=== PATIENT | male | born 1980 | race African-American/Black ===

== ENCOUNTER 2016-12-10 16:34 | Inpatient (IN) ==
[2016-12-10 18:16] LABS: MANUAL DIFF NEEDED? NO
[2016-12-10 18:19] LABS: BASO% 0.2 % (0.0-0.8); EOS# 0.05 X1000 (0.0-0.7); EOS% 0.4 % (0.0-10.0); HEMATOCRIT 37.2 % (42.0-52.0); HEMOGLOBIN 12.4 g/dL (14.0-18.0); IMM GRAN# 0.04 X1000 (0.0-0.04); IMM GRAN% 0.3 % (0.0-0.5); LYMPH# 1.57 X1000 (1.2-3.4); MCH 29.2 PG (27-31); MCHC 33.3 g/dL (33-37); MCV 87.5 FL (81-99); MONO# 1.07 X1000 (0.11-0.59); MONO% 8.2 % (1.7-9.3); MPV 10.2 FL (7.4-10.4); NEUT% 78.9 % (42.2-75.2); PLT 300 X1000 (130-400); RBC 4.25 XMIL (4.7-6.1)
[2016-12-10 18:38] LABS: AGAP 13; BUN 11 mg/dL (8-22); CALCIUM 9.3 mg/dL (8.8-10.2); CHLORIDE 96 mmol/L (98-107); COSMO 272; POTASSIUM 4.2 mmol/L (3.5-5.1); SODIUM 135 mmol/L (136-145); TCO2 26 mmol/L (25-35)
[2016-12-10] MEDS: NORCO-5 PO PRN (18:56)
[2016-12-10] MEDS: KEFZOL 1 GM/D5W 1 GM/50 ML IVPB IV SCH (18:57)
[2016-12-10] MEDS: NS 1,000 ML IV SCH (18:57)
--- NOTE | 2016-12-10 21:07 | HISTORY AND PHYSICAL ---
DATE OF CONSULTATION: 12/10/2016 [facility] CONSULTATION CHIEF COMPLAINT: Left foot pain. HISTORY OF PRESENT ILLNESS: Mr. Teddy Baker Jr. is a 36-year-old male who presents to clinic today for evaluation of his left foot. He stepped on a nail about 6 days ago at work and it went through his athletic shoe up into the plantar aspect of his foot near the 2nd toe. What happened was that he pulled the nail out but did not seek medical treatment at that time and did not inform his boss what it happened, and this did happen at work. He continued to work until yesterday until he sought medical treatment here over the past day or so. He says that he has a lot of pain in the forefoot area and it is beginning to blister dorsally, that was not there previously. The entry site where the nail went in is not looking good and it is draining. His foot, ankle and leg are swelling at this point. PAST MEDICAL HISTORY: Diabetes and history of seizures although he has not had a seizure in a while. PAST SURGICAL HISTORY: None. MEDICATIONS: Metformin and Dilantin. ALLERGIES: No known drug allergies. SOCIAL HISTORY: Denies any smoking or alcohol use. FAMILY HISTORY: Noncontributory. REVIEW OF SYSTEMS: Positive for left foot pain. All other systems are essentially negative. PHYSICAL EXAMINATION: General: Well-developed, well-nourished male, in no acute distress. Head and neck: Normocephalic, atraumatic. Lungs: Respirations nonlabored. Cardiovascular: Regular rate. Abdomen: Nondistended. Left Lower Extremity: Examination of the plantar aspect of the foot really almost just medial to the 2nd MTP joint there is an open tract where he has some necrotic tissue and the necrotic tissue does look to be deep there. There is no active purulent drainage from the wound today. His entire foot is swollen along with his ankle and his lower leg. He has some pitting edema in the lower leg as well. Looking dorsally, the dorsal aspect of that 2nd MTP joint is getting some blistering there and some erythema to the whole dorsum of the foot. He can move the toes still. He does have sensation still, maybe just a little bit of numbness in the 2nd toe, 2+ DP pulse. ASSESSMENT: Left foreign body injury with foot infection and left lower extremity cellulitis. PLAN: I am going to admit Mr. Petty Bardales to the hospital today. He is going to start IV Ancef. We took a wound culture in clinic today and sent it off. I discussed with him also about irrigation and debridement in the operating room tomorrow morning as I would like to clean up that whole area and do a very thorough debridement, and then get him on some good antibiotics so we can minimize the injury to the foot. I discussed with him this is a pretty serious illness that he has. I went over with him the surgery, the risks, benefits, and potential complications. The risks include, but are not limited to, infection, wound healing problems, damage to nerves, arteries, veins, numbness, continued pain, DVT and anesthesia related risks. After discussing this, patient expressed understanding and wished to proceed. He will be admitted. I will consult the hospitalist especially as he has diabetes. I will also consult Infectious Disease as well. cc: Jaydon Urias MD
[2016-12-11] MEDS: KEFZOL 1 GM/D5W 1 GM/50 ML IVPB IV SCH ×2 (01:16→09:07)
[2016-12-11] MEDS: NORCO-5 PO PRN (01:16)
[2016-12-11] MEDS ORDERED: ZOFRAN IV PRN ×2 (01:29→12:20)
[2016-12-11] MEDS ORDERED: TYLENOL PO PRN (01:29)
[2016-12-11] MEDS ORDERED: NS 1,000 ML IV SCH (01:29)
[2016-12-11] MEDS: PROTONIX IV SCH (02:02)
[2016-12-11] MEDS: DILANTIN PO SCH ×2 (02:02→20:58)
[2016-12-11] MEDS: SODIUM CHLORIDE 0.9% INJ SCH (02:03)
[2016-12-11 05:46] LABS: MANUAL DIFF NEEDED? NO
[2016-12-11 05:50] LABS: BASO% 0.3 % (0.0-0.8); EOS# 0.03 X1000 (0.0-0.7); EOS% 0.4 % (0.0-10.0); HEMATOCRIT 35.1 % (42.0-52.0); HEMOGLOBIN 11.8 g/dL (14.0-18.0); IMM GRAN# 0.02 X1000 (0.0-0.04); IMM GRAN% 0.3 % (0.0-0.5); LYMPH% 18.3 % (20.5-51.1); MCH 29.4 PG (27-31); MCHC 33.6 g/dL (33-37); MCV 87.5 FL (81-99); MONO# 0.82 X1000 (0.11-0.59); MONO% 10.7 % (1.7-9.3); MPV 10.2 FL (7.4-10.4); PLT 260 X1000 (130-400); RBC 4.01 XMIL (4.7-6.1)
[2016-12-11 06:02] LABS: INR 0.98; PROTIME 10.3 Seconds (9.2-11.7); PTT 31.5 Seconds (22.0-36.0)
[2016-12-11] MEDS: HUMALOG SUBQ SCH ×4 (06:07→20:59)
[2016-12-11 06:13] LABS: AGAP 11; BUN 9 mg/dL (8-22); CALCIUM 8.9 mg/dL (8.8-10.2); CHLORIDE 102 mmol/L (98-107); COSMO 278; POTASSIUM 4.3 mmol/L (3.5-5.1); SODIUM 139 mmol/L (136-145); TCO2 26 mmol/L (25-35)
--- NOTE | 2016-12-11 07:39 | Diag Imaging Result Document ---
PROCEDURE NAME: CHEST-PORTABLE - 12/11/2016 AP PORTABLE CHEST AT 0550 HOURS: Normal chest.
[2016-12-11] MEDS ORDERED: GLUCOPHAGE PO SCH (08:00)
--- NOTE | 2016-12-11 10:03 | PROGRESS NOTE ---
DATE: 12/11/2016 SUBJECTIVE: Ms. Petty Bardales is resting in bed this morning. He is NPO. OBJECTIVE: Left lower extremity exam, dressing is clean, dry, and intact to the foot. No drainage through there. He is still able to move his toes well. ASSESSMENT: Left foot infection with left lower extremity cellulitis. PLAN: Plan today is to perform irrigation and debridement in the operating room today. Take some really good deep cultures and then put him on appropriate antibiotics. We will plan on him being here over the weekend and if everything is looking good, hopefully discharge early this next week. cc: MD Donny Velasco MD
[2016-12-11] MEDS ORDERED: VERSED ONE (11:25)
[2016-12-11] MEDS ORDERED: DIPRIVAN 1% ONE (11:25)
[2016-12-11] MEDS ORDERED: OXY IR PO PRN (12:18)
[2016-12-11] MEDS ORDERED: MORPHINE IV PRN (12:19)
[2016-12-11] MEDS ORDERED: VANCOMYCIN IV PER PHARMACY MISC SCH (13:00)
[2016-12-11] MEDS ORDERED: XYLOCAINE-MPF 2% ONE (13:10)
[2016-12-11] MEDS ORDERED: ANESTHESIA PB SET 88 IN 5742 ONE (13:10)
[2016-12-11] MEDS ORDERED: DECADRON ONE (13:10)
[2016-12-11] MEDS ORDERED: ZOFRAN ONE (13:10)
[2016-12-11] MEDS ORDERED: EXTENSION SET 32 IN 4522 ONE (13:10)
[2016-12-11] MEDS ORDERED: LR 1,000 ML ONE (13:10)
--- NOTE | 2016-12-11 13:40 | CONSULTATION ---
DATE OF CONSULTATION: 12/11/2016 PRIMARY CARE PROVIDER: Dr. Alex Caballero. CHIEF COMPLAINT: Left foot pain. HISTORY OF PRESENT ILLNESS: Mr. Baker is a 36-year-old male, who states that on Wednesday of last week, approximately 7 days ago that he stepped on a nail while at work. He reported that he was wearing sneakers at this time and that the nail went through the sneaker and into his left foot. The patient states that starting approximately on Wednesday that he began having pain and swelling in his left lower extremity. He went and saw his primary care physician, Dr. Caballero, who did perform an x-ray of his left foot and did refer him to Dr. Urias for further evaluation. Dr. Urias did report in his note that at his clinic today that the patient did have some drainage noted to his wound on the plantar surface of his foot, just proximal to his left great and 4th toe. Also noted is a blister on the dorsal portion of his left foot as well that is also just proximal to his left great and 4th toes. Dr. Urias did have the patient placed for admission for irrigation and debridement of his left foot tomorrow morning. He also placed him on Ancef IV. He has consulted the hospitalist service as well as Dr. Mendiola with infectious disease for further evaluation. The patient denies any fever, body aches, or chills. He denies any headache, dizziness, lightheadedness, chest pain, shortness of breath, or cough. He denies any abdominal pain, nausea, vomiting, diarrhea, or constipation. He reports that his last bowel movement was yesterday. He denies any hematochezia or melena. He denies any dysuria or urinary frequency. He denies any pain, numbness, or tingling except for the reported left foot and left lower extremity pain. REVIEW OF SYSTEMS: A 12 point review of systems was conducted with the patient and all were negative except for pertinent positives mentioned in the above HPI. PAST MEDICAL HISTORY: 1. Diabetes mellitus type 2. 2. History of seizures. The patient states that he currently takes Dilantin and has not had a seizure in over a year. PAST SURGICAL HISTORY: Patient denies any previous surgeries. SOCIAL HISTORY: Patient denies any alcohol, tobacco, or illicit drug use. FAMILY HISTORY: Positive for diabetes mellitus in his mother. ALLERGIES: Patient has no known drug allergies. HOME MEDICATIONS: 1. Metformin 500 mg p.o. b.i.d. 2. Dilantin 60 mg p.o. at bedtime. DIAGNOSTIC DATA/LABORATORY RESULTS: White blood cell count 13.06, hemoglobin 12.4, hematocrit 37.2, platelet count is 300,000. Sodium 135, potassium 4.2, chloride 96, bicarb 26, BUN 11, creatinine 1.1, with a GFR greater than 60. Glucose is 150. Calcium 9.3. Pending diagnostic studies at this time are wound culture, blood culture, PT, PTT, EKG, and chest x-ray. PHYSICAL EXAMINATION: Vital Signs: Temperature 98.7 degrees, heart rate 76, respirations 18, blood pressure 122/77, oxygen saturations is 100% on room air. General: Mr. Baker is a pleasant, 36-year-old male who was resting comfortably in the inpatient bed. He was awake and alert upon examination and was in no acute distress. HEENT: Head is atraumatic, normocephalic. Pupils are equal, round, reactive to light, 3 mm bilaterally and brisk. Conjunctivae were pink. Oral mucosa was moist. Oropharynx is clear. Neck: Supple. Trachea midline. Cardiovascular: Patient has normal S1, S2. No murmurs, gallops, rubs appreciated. Regular rhythm and rate. Pulmonary: Patient has symmetrical chest expansion bilaterally. Lung sounds are clear to auscultation in bilateral full sánchez. Abdomen: Soft, nontender, nondistended. Bowel sounds were present in all 4 quadrants, were normoactive. Extremities:Patient does have increased swelling and warmth noted to his left lower extremity from approximately knee down. He does have 1+ pitting edema noted as well from knee down. The patient has pain and tenderness noted upon palpation as well. All other extremities are within normal limits. Pulse, motor, and sensory is intact in all extremities as well. Pedal pulses are 3+ bilaterally. This includes dorsalis pedis and posterior tibialis. Integumentary: The patient's skin color is normal for his race, dry, and intact. Patient does have, as previously mentioned, warmth, erythema, and swelling noted to his left lower extremity and foot. On the dorsal portion of his foot, just proximal to his left 5th and 4th toes he does have a blister noted. On the plantar surface of his foot he does have a puncture wound noted that has packing present at this time. No other lesions or sores noted. Neurological: Patient is alert and oriented to person, place, time, and situation. Cranial nerves 2 through 12 are grossly intact. ASSESSMENT: 1. Left foreign body injury with foot infection and left lower extremity cellulitis. This is being managed by Dr. Urias. He has placed the patient on Ancef 1 g IV q.8 hours. Wound culture as well as blood cultures have been obtained. He has also placed a consult with Dr. Mendiola with infectious disease. He does plan to take the patient to surgery this morning for irrigation and debridement. We will await Dr. Mendiola' evaluation and recommendations, as well as Dr. Urias and will continue to follow. 2. Diabetes mellitus type 2. The patient normally takes metformin though given that he does have a pretty serious foot infection, we will go ahead and place him on a lispro insulin low-dose sliding scale so that we can closely control his blood sugars. We will place him on pattern fingerstick blood sugars and will continue to monitor closely. 3. Seizures. For this we will continue the patient's Dilantin 600 mg p.o. at bedtime and we will continue to follow. We will also place him on seizure precautions. 4. Leukocytosis. This is likely secondary to his previously mentioned left foot infection and left lower extremity cellulitis. We will continue with treatment as mentioned for #1 and continue to follow. PLAN: The patient has been placed on medical floor with telemetry. He will have vital signs q.8. We will do intake and output q.8 as well. DVT prophylaxis at this time will be provided with SCDs, though we will await Dr. Urias's further instructions for this and given that the patient is a surgical patient we will hold anticoagulants at this time and will continue to follow. He will be NPO for surgery this morning, though after this he will be placed on a diabetic diet. We will repeat a CBC, as well as a BMP in the morning. He is also receiving fluid hydration at this time of normal saline at 75 mL/h. Other orders and recommendations pending hospital course, diagnostic studies, and physician evaluations. We would like to thank Dr. Urias for this consultation. Dictated by JAZZ Franks for Rosendo Ordaz MD cc: MD Donny Gibbons MD [facility] HOSPITALMatt
[2016-12-11] MEDS: PERIDEX MT SCH ×2 (14:02→20:58)
[2016-12-11] MEDS: MAXIPIME 2 GM/NS 2 GM/100 ML IVPB IV SCH ×2 (14:16→20:58)
[2016-12-11] MEDS ORDERED: VANCOMYCIN 2,000 MG in NS 500 ML IV ONE (15:00)
--- NOTE | 2016-12-11 16:20 | OPERATIVE NOTE ---
PROCEDURE DATE: 12/11/2016 PREOPERATIVE DIAGNOSES: Left forefoot infection. POSTOPERATIVE DIAGNOSIS: Left forefoot infection. PROCEDURE PERFORMED: Left irrigation and debridement of the forefoot. SURGEON: Jaydon Urias MD COMMUNITY COORDINATOR: Arias Christie RN ANESTHESIA: General with LMA. TOURNIQUET TIME: None. IMPLANTS: None. SPECIMENS: Cultures taken and sent to the lab. DISPOSITION: To PACU, hemodynamically stable. INDICATIONS FOR PROCEDURE: Mr. Teddy Baker Jr. is a 36-year-old male who presented to the [facility] yesterday. He had stepped on a nail about a week prior and, unfortunately, his foot began to swell a lot and it began to drain, so he saw his primary physician who sent him over to me and then I admitted him to the hospital and booked him for surgery today for irrigation and debridement. I got the Infectious Disease Team involved as well and our Hospitalist Team involved to manage his diabetes. I discussed with him about irrigation and debridement of the foot. He expressed understanding and wished to proceed. DESCRIPTION OF PROCEDURE: Mr. Teddy Baker Jr. was identified in the preoperative holding area. The left foot was marked out as the correct surgical site. He was then wheeled to the operating room and placed supine on the operating table. All bony prominences were well padded. He was induced under general anesthesia. LMA was placed. A tourniquet was placed on the left thigh but never inflated. The left lower extremity then prepped with Betadine and Betadine solution and draped in normal sterile fashion. A surgical pause was performed. We identified the correct patient, correct side, and the correct procedure. Preop antibiotics were given. I started doing debridement. He had a lot of skin slough that was there, so we debrided all of that back and then used a curette and debrided the epidermis and dermis, subcutaneous tissue, and muscle fascia. We excisionally debrided with a curette, forceps, scalpel, and a rongeur. We thoroughly debrided that area until we got back to healthy-appearing skin. We debrided all the slough and necrotic tissue and even though the nail, he says, did not go through and through, the infection eroded the dorsal aspect of the 1st web space, so this was really a [id number] wound at this point. After very thorough debridement, we irrigated everything copiously with normal saline. All the tissue actually looked really good. At this point, I then packed it with iodoform packing and we wrapped him up with 4 x 4's, soft roll, and an Jim. He was then wheeled from general anesthesia, moved to his own bed, and taken to the PACU in stable condition. Postoperatively, he will be nonweightbearing on the left lower extremity. He will be transferred back to the floor. I will talk to the Infectious Disease Team and see what antibiotics they want him to be on while we await cultures. cc: MD Donny Velasco MD
--- NOTE | 2016-12-11 16:49 | CONSULTATION ---
DATE OF CONSULTATION: 12/11/2016 CONCLUSION: The patient is status post incision and debridement of an infected left foot which occurred when the patient stepped on a nail which went through the gym shoe the patient was wearing. According to Dr. Urias, infection did not involve bone. RECOMMENDATIONS: I have changed the patient from cefazolin to cefepime and vancomycin pending culture results. The Gram stain taken from the patient's left foot where the large wound was that was open showed gram positive cocci and gram positive rods. LABORATORY DATA: Patient's laboratory studies show a CBC with a white count of 7650, hemoglobin 11.8 and platelet count 260,000. Creatinine is 1.0. GFR is greater than 60. The wound and blood cultures are pending. PREVIOUS HOSPITALIZATIONS AND OPERATIONS: The patient was admitted because of seizures. MEDICAL DISEASES: Positive for seizures and diabetes mellitus. INFECTIOUS DISEASE HISTORY: Negative for pneumonia and UTI. FAMILY HISTORY: Positive for diabetes. SOCIAL HISTORY: [place] He is . Works at [employer]. ALLERGIES: He has no known drug allergies. HOME MEDICATIONS: Include metformin and Dilantin. PHYSICAL EXAMINATION: Vital Signs: Temperature is 98.6 degrees, pulse 78, respirations 22, blood pressure 135/85. General: This is a healthy-appearing young male. He is in no acute distress. Head, eyes, ears, nose, and throat: He can hear my spoken words and see near objects. No drainage noted from the nose or ears. Neck: No meningismus. Lungs: Clear to auscultation. Cardiovascular: Heart rate was regular. Abdomen: Soft and nontender. Extremities: There is a large dressing around the patient's left foot. The dressing is intact. Vital signs: Temperature is 98.6 degrees, pulse 78, respirations 22, blood pressure 135/55. Thank you for the consult. cc: MD Donny Cordero MD
--- NOTE | 2016-12-11 17:21 | PROGRESS NOTE ---
DATE: 12/11/2016 SUBJECTIVE: Mr. Baker accidentally stepped on a nail about a week ago. Did not really take care of it and he started having swelling and went to see PCP. PCP Referred him to Dr. Urias and Dr. Urias admitted him to the hospital. The patient had incision and drainage of the infected foot by Dr. Urias and he is doing much better now. OBJECTIVE: Vital signs: Blood pressure is 139/83, pulse of 75, temperature is 99. Right foot: His right foot is in band and sterile bandage. LABORATORY AND X-RAY DATA: Blood cultures have been negative. A Gram stain shows gram-positive cocci and gram positive rods. LABORATORY DATA: WBC is normalized to 7.65, hemoglobin 11.8, platelet count of 260,000. Chemistry is reviewed. Glucose is fine. CURRENT MEDICATIONS: 1. Cefepime 2 g q.8. 2. Lovenox 40. 3. Vancomycin. 4. Oxycodone. 5. Sliding scale insulin. ASSESSMENT: 1. Nail injury to the right foot with some necrotic tissue and surrounding cellulitis. This has been debrided by Dr. Urias. I think the concern of nail injury would be to cover Pseudomonas and possible skin organism like methicillin-resistant Staphylococcus aureus, which antibiotics have been appropriately recommended been recommended by Infectious Disease. 2. Diabetes mellitus. Stable. We will continue with the insulin regimen for now. 3. History of seizure. Patient is on Dilantin. 4. Leukocytosis has improved. 5. We will review the patient tomorrow morning and make further recommendations. cc: Donny Best MD MTDMatt
[2016-12-12] MEDS: SODIUM CHLORIDE 0.9% INJ SCH (02:12)
[2016-12-12] MEDS: VANCOMYCIN 1,850 MG in NS 500 ML IV SCH ×2 (02:12→14:41)
[2016-12-12] MEDS: PROTONIX IV SCH (02:12)
[2016-12-12] MEDS: LOVENOX SUBQ SCH (05:47)
[2016-12-12] MEDS: MAXIPIME 2 GM/NS 2 GM/100 ML IVPB IV SCH ×3 (05:47→20:37)
[2016-12-12] MEDS: NS 1,000 ML IV SCH (05:49)
[2016-12-12] MEDS: HUMALOG SUBQ SCH ×4 (06:19→20:42)
[2016-12-12] MEDS: PERIDEX MT SCH ×2 (09:35→20:38)
--- NOTE | 2016-12-12 11:26 | PROGRESS NOTE ---
DATE: 12/12/2016 SUBJECTIVE: Mr. Olivia Jr. is lying in bed this morning. Pain is well controlled. OBJECTIVE: Left lower extremity exam: Dressing is clean, dry, and intact. No drainage on the dressing. He has good sensation to light touch to the great toe and 2nd toe. ASSESSMENT: Status post left foot irrigation and debridement. PLAN: Mr. Olivia Jr. is going to remain here over the weekend receiving IV antibiotics. Come Wednesday we will get a final disposition from the Infectious Disease team what to send him out on and hopefully we will be able to discharge him on Wednesday. He will be nonweightbearing left lower extremity and will get a wound dressing change on Wednesday as well. cc: MD Donny Velasco MD
--- NOTE | 2016-12-12 14:44 | PROGRESS NOTE ---
DATE: 12/12/2016 Today Mr. Baker referred to be doing fine. He has been up doing physical therapy. OBJECTIVE: Vital signs: Blood pressure is 139/79, pulse of 71, respiration is 12, temperature 98.2 degrees. General Exam: Mr. Baker is a 36-year-old male. He is in bed, not in distress. HEENT: Mucosa is pink and moist. Anicteric. Acyanotic. Neck: Supple. Chest: Clear. Cardiovascular: Regular rate and rhythm. No murmurs, no rubs. Abdomen: Soft. Extremities: The left lower extremity is in Orthopedic boots and with dressing. So far the left foot anaerobic culture shows no growth and blood cultures have been no growth. ASSESSMENT: 1. Nail injury in the left foot with necrotic tissue and surrounding cellulitis. Patient is status post I and D by Dr. Urias. 2. Diabetes mellitus. We will continue with the current insulin regimen. 3. History of seizures. Patient is on Dilantin. 4. Leukocytosis improved. So in general, I think Mr. Baker is doing fine. He is getting up and doing some PT. We are going to continue with the current IV antibiotics. Wednesday we will be able to look at the wound for dressing and also awaiting ID final recommendations for IV antibiotics. We will continue to control his diabetes with insulin and seizure disorder with Dilantin. cc: Donny Best MD
[2016-12-12] MEDS: DILANTIN PO SCH (20:38)
[2016-12-13] MEDS: SODIUM CHLORIDE 0.9% INJ SCH (00:02)
[2016-12-13] MEDS: PROTONIX IV SCH ×2 (00:02→02:00)
[2016-12-13] MEDS: VANCOMYCIN 1,850 MG in NS 500 ML IV SCH ×2 (03:27→17:27)
[2016-12-13] MEDS: NS 1,000 ML IV SCH ×3 (03:27→22:49)
[2016-12-13] MEDS: MAXIPIME 2 GM/NS 2 GM/100 ML IVPB IV SCH ×3 (05:44→22:49)
[2016-12-13] MEDS: LOVENOX SUBQ SCH (06:21)
[2016-12-13] MEDS: HUMALOG SUBQ SCH ×3 (06:22→15:58)
[2016-12-13] MEDS: PERIDEX MT SCH ×2 (08:39→22:49)
--- NOTE | 2016-12-13 15:38 | PROGRESS NOTE ---
DATE: 12/13/2016 SUBJECTIVE: Today Mr. Baker refers to be doing fine. Denies any complaints. OBJECTIVE: Vitals: Blood pressure is 149/69, pulse of 70, respirations 16, temperature 98.2 degrees. General: Mr. Baker 36-year-old male. He is in bed, no distress. HEENT: Mucosa is pink and moist. Anicteric. Acyanotic. Neck: Supple. Chest : Clear. Cardiovascular: Regular rate and rhythm. Abdomen: Soft, nontender. Extremities: No pedal edema. The left lower extremity is in orthopedic dressings. LAB: Microbiology so far has been unremarkable. ASSESSMENT: 1. Nail injury to left foot with necrotic tissue and surrounding cellulitis. The patient is status post incision and drainage. 2. Diabetes mellitus stable. 3. History of seizures. 4. Leukocytosis likely due to foot infection improved. PLAN: In general I think Mr. Baker is doing fine. Will continue with the current antibiotics. We are pending wound care to evaluate the wound by tomorrow. Hopefully we might be able to discharge him tomorrow depending on how the wound looks like. cc: Donny Best MD MTDD
[2016-12-13] MEDS: DILANTIN PO SCH (22:49)
[2016-12-14] MEDS: VANCOMYCIN 1,850 MG in NS 500 ML IV SCH (04:21)
[2016-12-14] MEDS: PROTONIX IV SCH (04:22)
[2016-12-14] MEDS: NS 1,000 ML IV SCH ×2 (04:57→13:17)
[2016-12-14] MEDS: HUMALOG SUBQ SCH ×3 (04:57→11:40)
[2016-12-14 05:37] LABS: MANUAL DIFF NEEDED? NO
[2016-12-14 05:40] LABS: BASO% 0.4 % (0.0-0.8); EOS# 0.02 X1000 (0.0-0.7); EOS% 0.3 % (0.0-10.0); HEMATOCRIT 37.6 % (42.0-52.0); HEMOGLOBIN 12.8 g/dL (14.0-18.0); IMM GRAN# 0.07 X1000 (0.0-0.04); IMM GRAN% 0.9 % (0.0-0.5); LYMPH# 1.53 X1000 (1.2-3.4); LYMPH% 20.6 % (20.5-51.1); MCH 29.5 PG (27-31); MCV 86.6 FL (81-99); MONO# 0.74 X1000 (0.11-0.59); MPV 9.3 FL (7.4-10.4); NEUT% 67.8 % (42.2-75.2); PLT 352 X1000 (130-400); RBC 4.34 XMIL (4.7-6.1)
[2016-12-14 06:05] LABS: AGAP 12; BUN 8 mg/dL (8-22); CALCIUM 9.2 mg/dL (8.8-10.2); CHLORIDE 99 mmol/L (98-107); COSMO 274; SODIUM 137 mmol/L (136-145); TCO2 26 mmol/L (25-35)
--- NOTE | 2016-12-14 06:23 | PROGRESS NOTE ---
DATE: 12/14/2016 SUBJECTIVE: Mr. Baker is lying in bed this morning resting well. Not really complaining of a lot of pain. OBJECTIVE: Left lower extremity exam, dressing is clean, dry, and intact. Still able to move his toes very well. ASSESSMENT: Status post left foot irrigation debridement and packing with iodoform. PLAN: Mr. Baker is going to have a dressing change today per our wound care team and they will repack that wound as well. We will get a final statement from Dr. Mendiola what he wants them to go on as far as antibiotic-zamarripa, and hopefully we will get everything set up today for discharge. Probably will need home health set up to come out to help him with his dressing changes. cc: MD Donny Velasco MD
[2016-12-14] MEDS: LOVENOX SUBQ SCH (06:24)
[2016-12-14] MEDS: MAXIPIME 2 GM/NS 2 GM/100 ML IVPB IV SCH (06:26)
--- NOTE | 2016-12-14 08:57 | PROGRESS NOTE ---
DATE: 12/14/2016 PRESENT ILLNESS: The patient is status post incision and drainage of an incision and debridement of an infected left foot. The operative note indicates that no bone or joint was involved. MEDICATIONS: The patient is on vancomycin and cefepime. PHYSICAL EXAMINATION: Vital Signs: Temperature is 98.2 degrees, pulse 70, respirations 20, blood pressure 136/80. Generally: A healthy-appearing, young male. He is in no acute distress. Lungs: Clear to auscultation. Cardiovascular: Regular heart rate. Abdomen: Soft and nontender. Extremities: The patient's left foot had a large dressing around it. The dressing was intact. LAB AND X-RAY: Today the patient's creatinine is 1, the GFR is greater than 60. Vancomycin level was 17.2. The patient's CBC showed a white count of 7430, hemoglobin 12.8 and platelet count 352,000. The Gram stain of the foot shows gram-positive cocci. The culture is pending. ASSESSMENT AND PLAN: Patient has an infected foot. It involves the soft tissue and not bone or joint. The culture is still pending. For now, I am going to continue vancomycin but discontinue cefepime. COMORBIDITY: He stepped on a nail which went through the gym shoe he was wearing, diabetes mellitus. cc: MD Donny Cordero MD MTDD
[2016-12-14] MEDS: PERIDEX MT SCH (09:22)
--- NOTE | 2016-12-14 12:07 | EKG Report ---
Test Performed on : 12/12/2016 06:19:27 AM Test Reason : Left Foot Infection, Sugical Patient Blood Pressure : / mmHG Vent. Rate : 076 BPM Atrial Rate : 076 BPM P-R Int : 166 ms QRS Dur : 080 ms QT Int : 368 ms P-R-T Axes : 066 016 -05 degrees QTc Int : 414 ms Normal sinus rhythm. Normal ECG When compared with ECG of 17-AUG-2012 07:28, Nonspecific T wave abnormality no longer evident in Lateral leads Confirmed by Criss STREETER, Miguelito Krueger ([id number]) on 12/15/2016 12:35:44 PM
[2016-12-14] MEDS ORDERED: KEFLEX PO SCH (13:00)
[2016-12-14 14:45] VITALS: BP 136/86
--- NOTE | 2016-12-14 15:47 | PROGRESS NOTE ---
DATE: 12/14/2016 ADDENDUM: The patient's culture finally returned. It is growing Pseudomonas aeruginosa and Staphylococcus lugdunensis. Both of the organisms are susceptible to Levaquin. The patient is being given a prescription for Levaquin 500 mg daily for 2 weeks. He will have followup with Dr. Urias. I am available to see the patient on a p.r.n. basis. cc: MD Donny Cordero MD
--- NOTE | 2016-12-15 04:17 | DISCHARGE SUMMARY ---
ADMISSION DATE: 12/10/2016 DISCHARGE DATE: 12/14/2016 DISPOSITION: Home. FOLLOWUP: 1. Dr. Caballero, PCP. 2. Dr. Mendiola. 3. Dr. Urias. CONSULTATIONS DURING THIS ADMISSION: Orthopedics was consulted. Patient was seen by Dr. Urias. ID was consulted. Patient was seen by Dr. Mendiola. IMAGING STUDIES OF SIGNIFICANCE: None. INVASIVE PROCEDURES DONE DURING THIS ADMISSION: An I D and a left irrigation and debridement of the foot was done by a Dr. Urias. ADMISSION DIAGNOSES: 1. Left foreign body. 2. Diabetes mellitus. 3. Seizures. DISCHARGE DIAGNOSES: 1. Nail injury to left foot, with necrotic tissue and surrounding cellulitis, status post incision and drainage. 2. Diabetes mellitus. 3. Seizure disorder. 4. Leukocytosis, secondary to foot infection. PRESENTING COMPLAINT: Left foot pain. HISTORY OF PRESENTING COMPLAINT: Mr. Baker is a 36-year-old male who accidentally stepped on a nail at work. He was able to pull it out by himself. However, a couple to 3 days later, he started having swelling of the left foot. He went to his PCP, who referred him to Dr. Urias. Dr. Urias saw him in his office, thought that the patient needed to be surgically intervened, got him admitted, and consulted us. During. HOSPITAL COURSE: Patient underwent an I and D. ID was also consulted. Initially, patient was placed on 2 IV antibiotics. The cultures from the wound came back as Pseudomonas aeruginosa and Staphylococcus lugdunensis, both of which were sensitive to levofloxacin. The antibiotics were changed to p.o. levofloxacin, and the patient was discharged. Wound care was also consulted. Patient has been given orientation as to how to dress the wound at home, has also been given an orientation on how to get in touch with the wound care center in [place], here in [place]. At the time of discharge, there is no complaint. Patient's vitals are stable. All have been reviewed. His labs have also been reviewed, and they are all unremarkable. DISCHARGE MEDICATIONS: 1. Phenytoin 600 mg at bedtime. 2. Metformin 500 mg b.i.d. 3. Aspirin 325 mg b.i.d. 4. Levofloxacin 500 mg p.o. daily. 5. OxyContin 1-2 mg p.o. q.4-6 hourly. TIME SPENT: Time spent for discharge is 36 minutes. cc: Donny Best MD
[2016-12-15] MEDS ORDERED: LEVAQUIN PO SCH (09:00)
== END 2016-12-14 16:43 | disposition home or self-care (01) ==
LOC: DIRADM 16:35 → 4N 16:43 → EDSTATUS 12-11 11:30
PROVIDERS: ADMIT Internal Medicine; ATTEND Orthopaedic Surgery